=== PATIENT | female | born 1960 | race Caucasian/White ===

== ENCOUNTER 2016-05-18 13:47 | Emergency (ER) ==
[2016-05-18 13:52] VITALS: BP 168/90
[2016-05-18] MEDS ORDERED: ASPIRIN PO ONE (13:56)
[2016-05-18] MEDS ORDERED: ATIVAN PO ONE (14:01)
--- NOTE | 2016-05-18 14:02 | PROVIDER DOCUMENTATION ---
HPI-Chest Pain - General Source: patient - History of Present Illness-CP Location: reports: central Chest Pain Radiation: reports: no radiation Quality of Pain: reports: tightness Severity in ED: mild Onset/Duration: last night Timing: intermittent Nitro Today/Relief: no nitro taken today Aspirin Treatment Today: no aspirin today Prior Chest Pain/Cardiac Workup: reports: no prior chest pain Similar Symptoms Previously?: No Recently Seen Here or By Another Healthcare Provider: Yes <Markel Prajapati - Last Filed: 05/18/16 15:04> <Kulwinder Paz - Last Filed: 05/18/16 15:15> - General Chief Complaint: Shortness of Breath Stated Complaint: CHEST PAIN/SOB Time Seen by Provider: 05/18/16 13:59 Allergies/Adverse Reactions: Patient Allergies Allergy/AdvReac Type Severity Reaction Status Date / Time No Known Allergies Allergy Verified 04/21/13 05:12 Home Medications: Home Medication List Medication Instructions Recorded Confirmed Last Taken Type Cyclobenzaprine HCl [Flexeril] 10 mg PO HS 04/21/13 04/21/13 04/20/13 History Estradiol 1 mg PO DAILY 04/21/13 04/21/13 04/20/13 History SIMVAstatin [Zocor] 20 mg PO QHS 04/21/13 04/21/13 04/20/13 History - History of Present Illness-CP Nature of Presenting Problem: PRESENTS TO ER WITH CC OF CHEST TIGHTNESS AND SOB. PT REPORTS SHE WOKE UP LAST NIGHT SOB HAVING CHEST TIGHTNESS AND LEFT ARM NUMBNESS. 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 MARIA G IS CURRENTLY BEING TREATED FOR BRONCHITIS. TESSY Arita V, F. (Markel Prajapati) Review of Systems - Adult - REVIEW OF SYSTEMS - ADULT Constitutional: denies: chills, fever, fatique Eyes: reports: no symptoms reported Ears, Nose, Mouth & Throat: reports: no symptoms reported Cardiovascular: reports: chest pain. denies: irregular heart rate, orthopnea, syncope Respiratory: reports: shortness of breath. denies: cough, pleurisy, wheezing Gastrointestinal: reports: no symptoms reported Genitourinary: reports: no symptoms reported Musculoskeletal: reports: no symptoms reported Integumentary: reports: no symptoms reported Neurological: reports: numbness. denies: loss of balance, paresthesia, seizure Psychiatric: reports: no symptoms reported Endocrine: reports: no symptoms reported Hematologic/Lymphatic: reports: no symptoms reported Allergic/Immunologic: reports: no symptoms reported All Other Systems: Reviewed and Negative <Markel Prajapati - Last Filed: 05/18/16 15:04> Past History - Adult - PAST MEDICAL HISTORY-ADULT Review of Records: reports: Nursing Assessment Review Major Childhood Illnesses: reports: denies history Cardiovascular: reports: HTN Obstetrical/Gynecological: reports: other (cervical) - PRIOR SURGERIES/PROCEDURES Surgical/Procedure History: reports: hysterectomy - IMMUNIZATION STATUS Childhood Immunizations: See Nurse Assessment Flu Vaccine: See Nurse Assessment - FAMILY HISTORY Family History: reviewed, not pertinent - SOCIAL HISTORY Smoking: denies Substance Use: none/never <Markel Prajapati - Last Filed: 05/18/16 15:04> Physical Exam-General - PHYSICAL EXAM-ADULT Initial Vital Signs Reviewed: Yes - CONSTITUTIONAL General Appearance: appears well, alert, anxious - EYES Eyes: PERRL/EOMI - HEAD, EARS, NOSE, MOUTH & THROAT HENMT: normal ENT inspection, TMs normal, pharynx normal - NECK Neck: non-tender, full range of motion, supple, normal inspection - RESPIRATORY Respiratory: chest non-tender, lungs clear, normal breath sounds, no pleuratic chest pain, no respiratory distress, no accessory muscle use - CARDIOVASCULAR Cardiovascular: regular rate, rhythm - GASTROINTESTINAL (ABDOMEN) Abdominal Exam: non tender, soft, no organomegaly, no pulsatile mass - MUSCULOSKELETAL Extremity: normal range of motion, non-tender, normal gait - SKIN Integumentary: normal color, normal turgor, warm/dry - PSYCHIATRIC Psych/Mental Status: normal thought content, normal thought process, oriented x 3, anxious <Markel Prajapati - Last Filed: 05/18/16 15:04> Progress - EKG 1 Time of EKG reading by physician:: 13:58 EKG Read and Signed by:: Kulwinder Paz EKG Interpretation (*Must complete 3 of following elements*): Normal Rate: 75 Rhythm: NSR [place]: normal QRS: normal - XRAY 1 XRAY: Bilateral XRAY Study: Chest Impression: Normal XRAY Interpretation: no pna or chf <Markel Prajapati - Last Filed: 05/18/16 15:04> <Kulwinder Paz - Last Filed: 03/14/17 15:15> - PLAN OF CARE/RESULTS Progress/Plan/Lab Results: Orders Category Date Time Status Cardiac Monitoring DIRECTED Care 05/18/16 13:56 Active CHEST-2 VIEWS [RAD] Stat Exams 05/18/16 13:56 Ordered CBC WITH DIFF [HEME] Stat Lab 05/18/16 13:55 Ordered CK PROFILE [SP CHEM] Stat Lab 05/18/16 13:56 Ordered CMP [COMPREHENSIVE METABOLIC PANEL] [CHEM] Stat Lab 05/18/16 13:55 Ordered MAGNESIUM [CHEM] Stat Lab 05/18/16 13:56 Ordered PRO B-NATRIURETIC PEPTIDE Stat Lab 05/18/16 13:56 Ordered TROPONIN T Stat Lab 05/18/16 13:56 Ordered Aspirin Med 05/18/16 13:56 Discontinued 325 mg PO NOW ONE Lorazepam [Ativan] Med 05/18/16 14:01 Discontinued 1 mg PO NOW ONE EKG [EKG] Stat Ther 05/18/16 13:54 Ordered Vital Signs - 24 hr 05/18/16 13:48 Temperature 98 F Pulse Rate 86 Respiratory 18 Rate Blood Pressure 168/90 O2 Sat by Pulse 100 Oximetry Laboratory Tests 05/18/16 05/18/16 05/18/16 14:05 14:05 14:05 WBC RBC Hgb Hct MCV MCH MCHC RDW Std Deviation Plt Count MPV Immature Gran % (Auto) Neut % (Auto) Lymph % (Auto) [place] % (Auto) Eos % (Auto) Baso % (Auto) Immature Gran # (Auto) Neut # (Auto) Lymph # (Auto) [place] # (Auto) Eos # (Auto) Baso # (Auto) Sodium 141 Potassium 3.3 L Chloride 103 Carbon Dioxide 26 Anion Gap 13 BUN 12 Creatinine 0.7 Estimated GFR/1.73 m2 > 60 BUN/Creatinine Ratio 17 Glucose 108 H Calculated Osmolality 282 Calcium 9.5 Magnesium 1.8 Total Bilirubin 0.20 AST 27 ALT 30 Alkaline Phosphatase 96 Creatine Kinase 44 Troponin T < 0.010 Aqs-G-Rfkdcfcemjp Pept Total Protein 7.2 Albumin 4.3 Globulin 3.0 Albumin/Globulin Ratio 1.0 05/18/16 05/18/16 14:05 14:05 WBC 8.45 RBC 4.90 Hgb 14.0 Hct 40.9 MCV 83.5 MCH 28.6 MCHC 34.2 RDW Std Deviation 13.8 Plt Count 329 MPV 9.8 Immature Gran % (Auto) 0.2 Neut % (Auto) 52.5 Lymph % (Auto) 37.9 [place] % (Auto) 7.7 Eos % (Auto) 1.2 Baso % (Auto) 0.5 Immature Gran # (Auto) 0.02 Neut # (Auto) 4.44 Lymph # (Auto) 3.20 [place] # (Auto) 0.65 H Eos # (Auto) 0.10 Baso # (Auto) 0.04 Sodium Potassium Chloride Carbon Dioxide Anion Gap BUN Creatinine Estimated GFR/1.73 m2 BUN/Creatinine Ratio Glucose Calculated Osmolality Calcium Magnesium Total Bilirubin AST ALT Alkaline Phosphatase Creatine Kinase Troponin T Jdl-T-Ozhrjqvkiod Pept 79 Total Protein Albumin Globulin Albumin/Globulin Ratio (Markel Prajapati) Departure - Departure Time of Disposition Order: 15:04 Certified Medical Emergency: Emergent <Markel Prajapati - Last Filed: 05/18/16 15:04> - Departure Time of Disposition Order: 15:14 Certified Medical Emergency: Emergent <Kulwinder Paz - Last Filed: 05/18/16 15:15> - Departure DIAGNOSIS: Atypical chest pain, Anxiety, Hypokalemia Disposition: HOME 01 Condition: Stable Additional Instructions: FOLLOW UP WITH YOUR PRIMARY PROVIDER ED Follow Up Instructions: You have been treated by a care provider in the Emergency Department. These instructions are being provided to you so you can have an understanding of how to care for yourself upon discharge. Upon discharge from the Emergency Department, you are responsible for making arrangements for follow-up care by a physician of your choice. Take all prescribed medications as directed. Return to the Emergency Department immediately for any new or worsening symptoms. You may call the Physician Referral phone number at [phone] to obtain a list of Physicians who are taking new patients. Referrals: David Hernández MD [Primary Care Provider] - Attestation - Scribe Verification/Attestation Scribe:: Markel Prajapati Acting as Scribe for:: Kulwinder Paz Scribe documention review:: This chart was documented by a scribe and accurately reflects the service the provider performed and the decisions made by the provider. <Markel Prajapati - Last Filed: 05/18/16 15:04> Physician Attestation
[2016-05-18 14:11] LABS: MANUAL DIFF NEEDED? NO
[2016-05-18 14:13] LABS: BASO% 0.5 % (0.0-0.8); EOS% 1.2 % (0.0-10.0); HEMATOCRIT 40.9 % (37.0-47.0); IMM GRAN# 0.02 X1000 (0.0-0.04); IMM GRAN% 0.2 % (0.0-0.5); LYMPH% 37.9 % (20.5-51.1); MCH 28.6 PG (27-31); MCHC 34.2 g/dL (33-37); MCV 83.5 FL (81-99); MONO# 0.65 X1000 (0.11-0.59); MONO% 7.7 % (1.7-9.3); MPV 9.8 FL (7.4-10.4); NEUT% 52.5 % (42.2-75.2); PLT 329 X1000 (130-400)
[2016-05-18 14:30] LABS: AGAP 13; ALBUMIN 4.3 g/dL (3.5-5.0); ALKALINE PHOSPHATASE 96 U/L (32-104); BUN 12 mg/dL (8-22); CALCIUM 9.5 mg/dL (8.8-10.2); CHLORIDE 103 mmol/L (98-107); COSMO 282; GOT 27 U/L (10-30); GPT 30 U/L (10-36); MAGNESIUM 1.8 mg/dL (1.5-2.7); POTASSIUM 3.3 mmol/L (3.5-5.1); SODIUM 141 mmol/L (136-145); TCO2 26 mmol/L (25-35); TOTAL PROTEIN 7.2 g/dL (6.3-8.3)
[2016-05-18] MEDS ORDERED: POTASSIUM CHLORIDE 20% LIQUID PO ONE (14:58)
--- NOTE | 2016-05-18 15:18 | Diag Imaging Result Document ---
PROCEDURE NAME: CHEST-2 VIEWS - 05/18/2016 FRONTAL AND LATERAL CHEST, TWO VIEWS: FINDINGS: The lungs are well expanded. The heart is not enlarged. The vessels are not distended. No pneumonia. No pleural effusions. I believe there is a granuloma in the lower right lung. No consolidation. IMPRESSION: No pneumonia or congestive failure.
--- NOTE | 2016-05-18 16:11 | EKG Report ---
Test Performed on : 05/18/2016 1:58:10 PM Test Reason : sob tightness Blood Pressure : / mmHG Vent. Rate : 075 BPM Atrial Rate : 075 BPM P-R Int : 156 ms QRS Dur : 090 ms QT Int : 402 ms P-R-T Axes : 049 042 046 degrees QTc Int : 448 ms Normal sinus rhythm. Normal ECG No previous ECGs available Unconfirmed Result
== END 2016-05-18 15:31 | disposition home or self-care (01) ==
LOC: P.ED 13:47
DX: R07.89 Other chest pain (principal); E87.6 Hypokalemia; F41.9 Anxiety disorder, unspecified; R06.02 Shortness of breath; R20.0 Anesthesia of skin; I10 Essential (primary) hypertension; Z79.899 Other long term (current) drug therapy
CPT/HCPCS: 36415; 71020; 80053; 82550; 83735; 83880; 84484; 85025; 93005; 99284

== ENCOUNTER 2019-02-07 20:24 | Observation (INO) ==
[2019-02-07] MEDS ORDERED: ASPIRIN PR ONE (20:31)
[2019-02-07] MEDS ORDERED: ASPIRIN PO ONE (20:31)
[2019-02-07 21:16] LABS: BASO# 0.03 X1000 (0.0-0.2); BASO% 0.4 % (0.0-0.8); EOS# 0.12 X1000 (0.0-0.7); EOS% 1.7 % (0.0-10.0); HEMATOCRIT 38.4 % (37.0-47.0); HEMOGLOBIN 12.4 g/dL (12.0-16.0); IMM GRAN# 0.02 X1000 (0.0-0.04); IMM GRAN% 0.3 % (0.0-0.5); LYMPH# 3.11 X1000 (1.2-3.4); LYMPH% 43.7 % (20.5-51.1); MCH 28.4 PG (27-31); MCHC 32.3 g/dL (33-37); MCV 88.1 FL (81-99); MONO# 0.69 X1000 (0.11-0.59); MONO% 9.7 % (1.7-9.3); NEUT# 3.14 X1000 (1.4-6.5); NEUT% 44.2 % (42.2-75.2); PLT 286 X1000 (130-400); RBC 4.36 XMIL (4.2-5.4); RDW 13.6 % (11.5-14.5); WBC 7.11 X1000 (4.8-10.8)
[2019-02-07 21:23] LABS: INR 0.87; PROTIME 12.2 Seconds (11.0-16.0)
[2019-02-07 21:24] LABS: PTT 28.6 Seconds (22.3-41.8)
[2019-02-07 21:30] LABS: AGAP 10; ALBUMIN 4.5 g/dL (3.5-5.0); ALKALINE PHOSPHATASE 88 U/L (32-104); BUN 10 mg/dL (8-22); CHLORIDE 103 mmol/L (98-107); CK PROFILE 98 U/L (24-173); COSMO 279; CREATININE 0.6 mg/dL (0.5-0.9); ESTIMATED GFR > 60; GLUCOSE 111 mg/dL (70-104); GOT 24 U/L (10-30); GPT 33 U/L (10-36); POTASSIUM 3.7 mmol/L (3.5-5.1); SODIUM 140 mmol/L (136-145); TCO2 27 mmol/L (25-35); TOTAL PROTEIN 6.7 g/dL (6.3-8.3)
--- NOTE | 2019-02-07 21:32 | Diag Imaging Result Doc PS360 ---
EXAM: CHEST-2 VIEWS INDICATION: chest pain TECHNIQUE: 2 views COMPARISON: 01/30/2019 FINDINGS: There is evidence of prior granulomatous disease, stable. The lungs are grossly clear. There is no discrete pleural fluid collection or pneumothorax. The cardiomediastinal silhouette and central vasculature are grossly unremarkable. IMPRESSION: No evidence of acute pathology by plain radiograph. Electronically signed by Brian Negrete 02/07/2019 9:30 PM
[2019-02-07] MEDS ORDERED: CATAPRES PO ONE (23:11)
[2019-02-07] MEDS ORDERED: ATIVAN PO ONE (23:11)
[2019-02-07] MEDS ORDERED: NITROGLYCERIN SL PRN (23:14)
[2019-02-07] MEDS ORDERED: TYLENOL PO PRN (23:16)
--- NOTE | 2019-02-08 00:26 | EKG Report ---
Test Performed on : 02/07/2019 8:34:59 PM Test Reason : chest pain Blood Pressure : / mmHG Vent. Rate : 101 BPM Atrial Rate : 101 BPM P-R Int : 118 ms QRS Dur : 084 ms QT Int : 348 ms P-R-T Axes : 042 007 045 degrees QTc Int : 451 ms Sinus tachycardia. Possible Left atrial enlargement Borderline ECG When compared with ECG of 30-JAN-2019 00:20, (Unconfirmed) No significant change was found Unconfirmed Result
--- NOTE | 2019-02-08 05:35 | PROVIDER DOCUMENTATION ---
This chart was entered by Silva Goldberg Scribe, acting as scribe for Ilsa Quispe DO. HPI-Chest Pain - General Chief Complaint: Chest Pain Stated Complaint: RETURN/RETREAT Time Seen by Provider: 02/07/19 20:40 Source: patient Allergies/Adverse Reactions: Patient Allergies Allergy/AdvReac Type Severity Reaction Status Date / Time No Known Allergies Allergy Verified 02/07/19 20:31 Home Medications: Home Medication List Medication Instructions Recorded Confirmed Last Taken Type Cyclobenzaprine HCl [Flexeril] 10 mg PO HS 04/21/13 01/29/19 04/20/13 History Estradiol 1 mg PO DAILY 04/21/13 01/29/19 04/20/13 History SIMVAstatin [Zocor] 40 mg PO QHS 04/21/13 01/29/19 04/20/13 History Acetaminophen [Arthritis Pain] 650 mg PO BID 01/29/19 01/29/19 Unknown History B12/Levomefolate Calcium/B-6 1 ea PO DAILY 01/29/19 01/29/19 Unknown History [Foltx Tablet] Diclofenac Potassium 50 mg PO TID 01/29/19 01/29/19 Unknown History Ferrous Gluconate [Iron] 240 mg PO DAILY 01/29/19 01/29/19 Unknown History Methocarbamol 750 mg PO BID 01/29/19 01/29/19 Unknown History Omeprazole [Prilosec] 20 mg PO DAILY@0700 01/29/19 01/29/19 Unknown History Nitroglycerin Sl [Nitroglycerin] 0.4 mg SUBLINGUAL PRN PRN #10 tab 01/30/19 Un known Rx - History of Present Illness-CP Nature of Presenting Problem: Pt is a 58 yof who presents to the ED with a CC of chest pain. Pt states the pain began 10 days but her symptoms have increased in the last 30mins. Pt states that she felt her heart rate increase and chest tighten. Pt states that she took nitro and aspirin for pain. Pt states that she was seen in the ED 10 days ago for chest pain. Pt reports chest tightness, headache, and SOB. Pt reports a family hx of heart attacks, heart disease, and high bp. Pt states that her pcp has her scheduled for an echo and stress test on Tuesday. Location: reports: central Chest Pain Radiation: reports: no radiation Quality of Pain: reports: tightness Severity in ED: mild Onset/Duration: just prior to arrival Timing: still present Context/Activities at Onset: reports: none Modifying Factors: improves with: other (aspirin slightly relieves symptoms) Associated Symptoms: reports: headache, shortness of breath Nitro Today/Relief: provided at home Aspirin Treatment Today: provided at home Prior Chest Pain/Cardiac Workup: reports: echocardiography (scheduled for tuesday), stress test (scheduled for tuesday) Similar Symptoms Previously?: Yes Recently Seen Here or By Another Healthcare Provider: Yes Review of Systems - Adult - REVIEW OF SYSTEMS - ADULT Constitutional: reports: see HPI Eyes: reports: no symptoms reported Ears, Nose, Mouth & Throat: reports: no symptoms reported Cardiovascular: reports: see HPI, chest pain Respiratory: reports: see HPI, shortness of breath Gastrointestinal: reports: no symptoms reported Genitourinary: reports: no symptoms reported Musculoskeletal: reports: no symptoms reported Integumentary: reports: no symptoms reported Neurological: reports: see HPI, headache/migraines Psychiatric: reports: see HPI, anxiety Endocrine: reports: no symptoms reported Hematologic/Lymphatic: reports: no symptoms reported Allergic/Immunologic: reports: no symptoms reported All Other Systems: Reviewed and Negative Past History - Adult - PAST MEDICAL HISTORY-ADULT Review of Records: reports: Nursing Assessment Review, Social history reviewed & non-contributory. Major Childhood Illnesses: reports: denies history Cardiovascular: reports: HTN Obstetrical/Gynecological: reports: other (cervical) - PRIOR SURGERIES/PROCEDURES Surgical/Procedure History: reports: hysterectomy - IMMUNIZATION STATUS Childhood Immunizations: See Nurse Assessment Flu Vaccine: See Nurse Assessment - FAMILY HISTORY Family History: CAD over 55 yo, HTN - SOCIAL HISTORY Smoking: quit greater than 1 year Substance Use: denies Living Situation: family Physical Exam-General - PHYSICAL EXAM-ADULT Initial Vital Signs Reviewed: Yes - CONSTITUTIONAL General Appearance: alert, no apparent distress - EYES Eyes: PERRL/EOMI, pink conjunctivae - HEAD, EARS, NOSE, MOUTH & THROAT HENMT: moist mucous membranes - NECK Neck: non-tender, full range of motion, supple, normal inspection - RESPIRATORY Respiratory: chest non-tender, lungs clear, normal breath sounds. negative: crackles, wheezing - CARDIOVASCULAR Cardiovascular: normal peripheral pulses, regular rate, rhythm, no edema, no gallop, no JVD, no murmur. negative: bradycardia, tachycardia - GASTROINTESTINAL (ABDOMEN) Abdominal Exam: normal bowel sounds, non tender, soft. negative: guarding, rebound - LYMPHATIC Lymphatic: no adenopathy - MUSCULOSKELETAL Back Exam: normal inspection, no CVA tenderness, no vertebral tenderness Extremity: normal range of motion, non-tender, normal inspection - SKIN Integumentary: normal color, normal turgor, warm/dry. negative: ecchymosis, erythema - NEUROLOGIC Neurologic: grossly normal. negative: facial droop, focal weakness, motor weakness, sensory deficit - PSYCHIATRIC Psych/Mental Status: normal mood/affect, normal thought content, normal thought process, oriented x 3 - HEART Score HEART Score: History: Moderately Suspicious HEART Score: ECG: Non-Specific Repolarization Disturbance/LBBB/PM HEART Score: Age: 45-65 Years HEART Score: Risk Factors for Atherosclerotic Disease: > or = 3 Risk Factors or History of Atherosclerotic Disease HEART Score: Troponin: < or = Normal Limit Total HEART Score:: 5 Progress - PLAN OF CARE/RESULTS Progress/Plan/Lab Results: Vital Signs - 8 hr 02/07/19 21:58 02/08/19 03:44 Temperature 97.9 F Pulse Rate 74 72 Respiratory Rate 18 Blood Pressure 152/91 119/73 O2 Sat by Pulse Oximetry 100 100 Laboratory Results - last 24 hr 02/07/19 02/07/19 02/07/19 21:00 21:00 21:00 WBC 7.11 RBC 4.36 Hgb 12.4 Hct 38.4 MCV 88.1 MCH 28.4 MCHC 32.3 L RDW Std Deviation 13.6 Plt Count 286 MPV 10.0 Immature Gran % (Auto) 0.3 Neut % (Auto) 44.2 Lymph % (Auto) 43.7 [place] % (Auto) 9.7 H Eos % (Auto) 1.7 Baso % (Auto) 0.4 Immature Gran # (Auto) 0.02 Neut # (Auto) 3.14 Lymph # (Auto) 3.11 [place] # (Auto) 0.69 H Eos # (Auto) 0.12 Baso # (Auto) 0.03 PT INR PTT (Actin FS) Sodium 140 Potassium 3.7 Chloride 103 Carbon Dioxide 27 Anion Gap 10 BUN 10 Creatinine 0.6 Estimated GFR/1.73 m2 > 60 BUN/Creatinine Ratio 17 Glucose 111 H POC Glucose Calculated Osmolality 279 Calcium 9.0 Total Bilirubin 0.30 AST 24 ALT 33 Alkaline Phosphatase 88 Creatine Kinase 98 Troponin T Iyl-H-Fleoqlhsaik Pept 89 Total Protein 6.7 Albumin 4.5 Globulin 2.0 Albumin/Globulin Ratio 2.0 02/07/19 02/07/19 02/07/19 21:00 21:00 21:21 WBC RBC Hgb Hct MCV MCH MCHC RDW Std Deviation Plt Count MPV Immature Gran % (Auto) Neut % (Auto) Lymph % (Auto) [place] % (Auto) Eos % (Auto) Baso % (Auto) Immature Gran # (Auto) Neut # (Auto) Lymph # (Auto) [place] # (Auto) Eos # (Auto) Baso # (Auto) PT 12.2 INR 0.87 PTT (Actin FS) 28.6 Sodium Potassium Chloride Carbon Dioxide Anion Gap BUN Creatinine Estimated GFR/1.73 m2 BUN/Creatinine Ratio Glucose POC Glucose 106 H Calculated Osmolality Calcium Total Bilirubin AST ALT Alkaline Phosphatase Creatine Kinase Troponin T < 0.010 Dat-G-Vwvobofziku Pept Total Protein Albumin Globulin Albumin/Globulin Ratio 02/08/19 02/08/19 03:00 03:00 WBC RBC Hgb Hct MCV MCH MCHC RDW Std Deviation Plt Count MPV Immature Gran % (Auto) Neut % (Auto) Lymph % (Auto) [place] % (Auto) Eos % (Auto) Baso % (Auto) Immature Gran # (Auto) Neut # (Auto) Lymph # (Auto) [place] # (Auto) Eos # (Auto) Baso # (Auto) PT INR PTT (Actin FS) Sodium Potassium Chloride Carbon Dioxide Anion Gap BUN Creatinine Estimated GFR/1.73 m2 BUN/Creatinine Ratio Glucose POC Glucose Calculated Osmolality Calcium Total Bilirubin AST ALT Alkaline Phosphatase Creatine Kinase 75 Troponin T < 0.010 Kkv-D-Oxzbuxesmbx Pept Total Protein Albumin Globulin Albumin/Globulin Ratio Orders Category Date Time Status Admit - [facility] Routine AdmDCTranf 02/07/19 23:12 Active Activity - Bed Rest with BRP ORDERED Care 02/07/19 23:12 Active Cardiac Monitoring DIRECTED Care 02/07/19 20:32 Active Oxygen Therapy- ED Nursing DIRECTED Care 02/07/19 20:32 Active Resuscitation Status Routine Care 02/07/19 23:12 Ordered Saline Loc DIRECTED Care 02/07/19 23:12 Active Saline Loc NOW Care 02/07/19 20:32 Active Vital Signs Order ROUTINE Care 02/07/19 23:12 Active Z-Document. for Tele Applied ORDERED Care 02/07/19 23:14 Active Heart Healthy Diet Diet 02/07/19 23:14 Active CHEST-2 VIEWS [RAD] Stat Exams 02/07/19 20:32 Completed MYOCARDIAL PERF SCAN, STR/REST [NM] Stat Exams 02/07/19 23:17 Ordered CBC WITH ELECTRONIC DIFF [HEME] Stat Lab 02/07/19 21:00 Completed CK PROFILE [SP CHEM] Stat Lab 02/07/19 21:00 Completed CK PROFILE [SP CHEM] Timed Lab 02/08/19 03:00 Completed COMPREHENSIVE METABOLIC PANEL [CHEM] Stat Lab 02/07/19 21:00 Completed PRO B-NATRIURETIC PEPTIDE Stat Lab 02/07/19 21:00 Completed PROTIME WITH INR [COAG] Stat Lab 02/07/19 21:00 Completed PTT [COAG] Stat Lab 02/07/19 21:00 Completed TROPONIN T Stat Lab 02/07/19 21:00 Completed TROPONIN T Timed Lab 02/08/19 03:00 Completed Acetaminophen [Tylenol] Med 02/07/19 23:16 Active 650 mg PO Q6H PRN PRN Aspirin Med 02/07/19 20:31 Discontinued 300 mg CA NOW ONE Aspirin Med 02/07/19 20:31 Discontinued 325 mg PO NOW ONE Clonidine [Catapres] Med 02/07/19 23:11 Discontinued 0.1 mg PO NOW ONE Lorazepam [Ativan] Med 02/07/19 23:11 Discontinued 1 mg PO NOW ONE Nitroglycerin Sl [Nitroglycerin] Med 02/07/19 23:14 Active 0.4 mg SL Q5M PRN PRN CP/SOB/Palp >45 yrs of Age Stat Oth 02/07/19 20:31 Ordered Telemetry [OM.EQ] Routine Oth 02/07/19 23:12 Active EKG [EKG] Stat Ther 02/07/19 20:32 Draft Echo Spec/Color Doppler Routine Ther 02/07/19 23:17 Ordered Transfer/Admit Order [TRANSFER] Routine Transfer 02/07/19 23:22 Ordered The pt has strong family hx of CAD. She also has elevated cholesterol and HTN. Her symptoms are concerning for unstable angina. Given her risk factors I recommended not waiting until next week for outpatient stress testing. Her initial trop was WNL. Case discussed with Dr Patel who admitted her. Result Diagrams: 02/07/19 21:00 02/07/19 21:00 Departure - Departure Date of Disposition Decision: 02/07/19 Time of Disposition Decision: 23:00 DIAGNOSIS: Chest pain Qualifiers: Chest pain type: unspecified Qualified Code(s): R07.9 - Chest pain, unspecified Disposition: ADMITTED INPATIENT 09 Certified Medical Emergency: Emergent Condition: Fair Referrals and Follow-Ups: David Hernández MD [Primary Care Provider] - - Critical Care Note This patient required my direct & personal management of CC.: No Attestation - Physician/ FORREST Attestation Patient care was provided by Advanced Practice Provider:: No The physician spent face to face time with patient:: Yes Advanced Practice Provider documentation review:: Supervising physician onsite and consulted in the evaluation and care of this patient. The physician did have a face to face encounter with the patient. This chart was documented by the indicated scribe, (Silva Goldberg Scribe) and accurately reflects the services I performed and decisions made by me, Ilsa Quispe DO, as attested by the provider's signature.
[2019-02-08 13:07] VITALS: BP 153/89
--- NOTE | 2019-02-08 13:13 | GRADED EXERCISE REPORT ---
DATE: 02/08/2019 The patient underwent treadmill exercise testing per modified Wander protocol. Her target heart rate was 137, which we reached near the end of stage II. Her peak heart rate was 142, with a peak blood pressure of 158/96. She did not develop chest pain during the study. She did not have clear ST depressions, at least greater than a millimeter. She did have some suggestion of ST depression in the inferior leads, but clearly more than a millimeter. In any case, the patient's test was felt to be electrically negative and clinically negative. Myocardial perfusion will be reported separately. The patient tolerated the procedure without difficulty. Refer this Dr. Hernández with myocardial perfusion imaging. cc: Ronnie Patel MD
--- NOTE | 2019-02-08 14:42 | Diag Imaging Result Document ---
PROCEDURE NAME: MYOCARDIAL PERF SCAN, STR/REST - 02/07/2019 PROCEDURE: Exercise Cardiolite stress test GXT. REFERRING PHYSICIAN: Dr. Patel. FINDINGS: Following the treadmill test at target heart rate, Cardiolite was injected. 12.7 mCi of Cardiolite was injected for the rest phase. 36.8 mCi of Cardiolite was injected for the stress phase. Images revealed significant chest wall attenuation. Normal left ventricular cavity size. Normal myocardial perfusion. Left ventricular ejection fraction by gated SPECT was 81%. CONCLUSIONS: 1. Normal myocardial perfusion. 2. Left ventricular ejection fraction by gated SPECT was 81 percent. cc: MD Ilsa Youngblood DO
--- NOTE | 2019-02-08 15:20 | ECHO REPORT ---
ORDER DATE: 02/07/2019 INTERPRETING PHYSICIAN: Dr. Ross Henley ECHOCARDIOGRAPHIC MEASUREMENTS: 1. Interventricular septum: 0.9 cm. 2. Posterior wall: 1.0 cm. 3. Diastolic diameter: 5.2 cm. 4. Left atrium: 3.9 cm. 5. Aortic root: 3.2 cm. SUMMARY OF THE 2-DIMENSIONAL IMAGIN. Tricuspid valve was normal. 2. Aortic valve leaflets are trileaflet. 3. Pulmonic valve was normal. There is mild pulmonary regurgitation. 4. Normal left ventricular cavity size. Estimated ejection fraction of 65%. 5. There is mild mitral regurgitation. 6. Mild tricuspid regurgitation. 7. There is mild diastolic dysfunction. 8. Peak velocity across the aortic valve was 2.3 m/sec. By Doppler studies, there is no aortic stenosis or regurgitation. 9. Pulmonary artery systolic pressure of 30 mmHg. 10. There is no pericardial effusion or obvious intracardiac mass or thrombus seen. cc: MD Ilsa Youngblood DO Alexis R. Penot, MD
--- NOTE | 2019-02-08 19:04 | HISTORY AND PHYSICAL ---
PRIMARY CARE PHYSICIAN: Dr. David Hernández. CHIEF COMPLAINT: Chest pain with tightness, headache, shortness of breath, and some palpitations that have been present intermittently over the last 10 days, but they have just progressively worsened. HISTORY OF PRESENTING ILLNESS: This is a 58-year-old, female, who presents to [facility] ER with complaints of substernal chest pain described as a tightness with no radiation. Aspirin slightly relieved her symptoms. She did have a little associated palpitations, headache, and shortness of breath. She states these symptoms have been going on for the past 10 days, was actually scheduled for an echo and a stress test on the upcoming Tuesday, but got concerned so she came in. First 2 sets of cardiac enzymes are negative. Blood pressure on arrival was 152/107, it is down now to 129/89. She is being admitted for further evaluation and treatment. PAST MEDICAL HISTORY: Hypertension and cervical cancer. PAST SURGICAL HISTORY: Hysterectomy, cataract surgery, back surgery, and a bunion repair. FAMILY HISTORY: Coronary artery disease and hypertension. SOCIAL HISTORY: Lives with family. Denies any tobacco, alcohol, or illicit drug use. ALLERGIES: She has no known drug allergies. HOME MEDICATIONS: A current list will need to be obtained, reconciled, reviewed, and restarted as appropriate. Will place an order for nursing to update and confirm home medications. LABORATORY AND DIAGNOSTIC DATA: White blood cell count of 7.11, hemoglobin 12.4, hematocrit 38.4, platelets 286,000. PT and INR of 12.2 and 0.87. Sodium 140, potassium 3.7, chloride 103, CO2 of 27, BUN of 10, creatinine 0.6, glucose 111. Troponins were negative x2 sets. Chest x-ray showed no evidence of acute pathology by plain radiograph. EKG showed sinus tachycardia at 101. REVIEW OF SYSTEMS: She denied any fever, chills, blurred vision, dizziness. She did have a headache, shortness of breath, chest tightness, palpitations. Denied any abdominal pain, constipation, diarrhea, nausea, vomiting, burning or hurting with urination. PHYSICAL EXAMINATION: VITAL SIGNS: On arrival, she had a temperature of 98.9 degrees, pulse 102, respirations 20, blood pressure was 157/107, saturating 100% on room air. Currently, her blood pressure is down to 129/89. HEENT: Normocephalic, atraumatic. Normal ENT inspection. Oropharynx and nares are clear. EYES: Pupils are equal, round, reactive to light and accommodation. Extraocular movements are intact. NECK: Normal inspection. Normal range of motion. LUNGS: Clear to auscultation bilaterally with equal lung expansion and chest wall movement. HEART: Regular rate and rhythm. No murmurs, rubs, or gallops. ABDOMEN: Soft, nontender, nondistended. Bowel sounds are present x4 quadrants. MUSCULOSKELETAL: Strength 5/5 x4 extremities. NEUROLOGICAL: Cranial nerves 2-12 appear grossly intact. ASSESSMENT: 1. Chest pain. 2. Hypertension. PLAN: She will be admitted to the medical unit and placed on telemetry. She was held n.p.o. after midnight. She had a myocardial perfusion scan this morning and those results are pending. We will place her on a healthy heart diet at this time. We did an echocardiogram and those results are pending as well. We need to update and confirm her home medications, and further orders after seen by attending and review of her test results. Dictated by HAIDER Mahajan for Ronnie Patel MD cc: HAIDER Mahajan MD Rodney W. Harney, MD Pt seen and examined with haider in stress lab, pt has been having chest pressure and elevated blood pressures for last several weeks, exam is unrevealing, RRR, lungs CTA; will plan cardiac workup and if negative work on blood pressure control, close followup with PCP [place]
--- NOTE | 2019-02-09 18:34 | DISCHARGE SUMMARY ---
ADMISSION DATE: 02/07/2019 DISCHARGE DATE: 02/08/2019 PRIMARY CARE PHYSICIAN: Dr. David Hernández. CHIEF COMPLAINT: Chest pain. HISTORY OF PRESENTING ILLNESS: This is a 58-year-old female who presented to [facility] ER with complaints of chest pain with some tightness and palpitations that have been intermittent over the past 10 days but worsened prior to arrival. States she took some nitroglycerin and aspirin for the pain. When she arrived, she had a blood pressure of 152/107, came down to 129/89. We did 2 sets of cardiac enzymes that were negative. We did a myocardial perfusion scan that was read as normal. We did an echocardiogram that showed an estimated ejection fraction of 65% with normal ventricular cavity size, so it is now felt that she can safely be discharged home today. DISCHARGE MEDICATIONS: Include Tylenol 650 mg p.o. b.i.d., tablet 1 p.o. daily, Flexeril 10 mg p.o. every night at bedtime, diclofenac 50 mg p.o. t.i.d., estradiol 1 mg p.o. daily, an iron tablet 240 mg p.o. daily, methocarbamol 750 mg p.o. b.i.d., nitroglycerin 0.4 mg sublingually p.r.n., omeprazole 20 mg p.o. daily, and simvastatin 40 mg p.o. every night at bedtime. FOLLOWUP: She will follow up with her primary care physician in the next 1 to 2 weeks and call their office for an appointment. All discharge instructions have been reviewed and she verbalized understanding. TIME SPENT: This is a 35 minute discharge. Dictated by COURT Mahajan for Ronnie Patel MD cc: COURT Mahajan MD Rodney W. Harney, MD MTDD
== END 2019-02-08 16:34 | disposition home or self-care (01) ==
LOC: P.ED 20:24 → P.EDIPHOLD 23:12 → INTOOBSV 23:12 → P.MEDSURG 02-08 12:01
PROVIDERS: ADMIT Internal Medicine; ATTEND Internal Medicine